=== PATIENT | male | born 1935 | race Caucasian/White ===

== ENCOUNTER → 2018-04-06 | Outpatient (CLI) | payer OTHER ==
[~2018-04-06] MED LIST: APAP650 PO; ASPIR 8181 MG PO; ATORVASTATIN CA40 MG PO; COUMADIN 5 MG TA5 M1 PO; FINASTERIDE5 MG PO; KLOR-CON 1010 MEQ PO; LASIX 40 MG TAB40 M2 PO; LEVAQUIN 500 M500 M2 PO; LISINOPRIL10 MG PO; LOPRESSOR50 MG PO; NITROGLYCERIN0.4 MG SUBLING; VITAMIN D1000 UNI1 PO; VITAMIN E400 UNIT PO
--- NOTE | 2018-04-06 10:04 | 2DMMODE ---
[place] [address] 2 D/M-MODE ECHOCARDIOGRAM Name: BRANT MILLER Room: [facility]#: [id number] Admission: 04/06/18 Attend Phys: Yin Randle, Discharge: Date of : 31 Date of Service: 04/06/18 1003 Report #: [id number] THIS REPORT FOR: //name// APPROVED REPORT Study performed: 04/06/2018 09:23:06 EXAM: Comprehensive 2D, Doppler, and color-flow Echocardiogram Patient Location: Out-Patient Status: routine BSA: 1.83 HR: 96 bpm BP: 110/68 mmHg Other Information Study Quality: Good Indications Cardiomyopathy 2D Dimensions LVEF(%): 19.01 (>50%) IVSd: 11.68 (7-11mm) LVOT Diam: 20.85 (18-24mm) LVDd: 61.95 mm PWd: 9.99 (7-11mm) Ascending Ao: 37.19 (22-36mm) LVDs: 56.50 (25-40mm) Aortic Root: 25.63 mm Martinez's LVEF: 19.01 % Volumes Left Atrial Volume (Systole) LA ESV Index: 39.10 mL/m2 Aortic Valve AoV Peak Anurag.: 0.82 m/s AO Peak Gr.: 2.68 mmHg LVOT Max P.07 mmHg AO Mean Gr.: 1.66 mmHg LVOT Mean P.53 mmHg LVOT Max V: 0.52 m/s AO V2 VTI: 12.65 cm LVOT Mean V: 0.34 m/s QUITA (VTI): 2.03 cm2 LVOT V1 VTI: 7.51 cm Mitral Valve MV Decel. Time: 211.34 ms MV PHT: 61.29 [place] [address] 2 D/M-MODE ECHOCARDIOGRAM Name: BRANT MILLER Room: [facility]#: [id number] Admission: 04/06/18 Attend Phys: Yin Randle, Discharge: Date of : 31 Date of Service: 04/06/18 1003 Report #: [id number] MVA (PHT): 3.59 cm2 TDI Medial E' Anurag.: 0.08 m/s Lateral E' Anurag.: 0.11 m/s Pulmonary Valve PV Peak Anurag.: 0.67 m/s PV Peak Gr.: 1.77 mmHg Tricuspid Valve RAP Estimate: 5.00 mmHg TR Peak Gr.: 16.93 mmHg RVSP: 21.93 mmHg PA Pressure: 21.93 mmHg Left Ventricle Left ventricle is mildly dilated. There is diffuse hypokinesis of left ventricular wall motion There is normal left ventricular wall thickness. Left ventricular systolic function is severely decreased. LVEF is 25%. This study is not technically sufficient to allow evaluation of the LV diastolic function due to atrial fibrillation. Right Ventricle The right ventricle is normal size. The right ventricular systolic function is normal. Atria Left atrium is moderately dilated. The right atrium size is normal. Aortic Valve Aortic valve leaflets are mildly thickened. Trace aortic regurgitation. There is no aortic valvular stenosis. Mitral Valve The mitral valve is normal in structure. Mild mitral regurgitation. No evidence of mitral valve stenosis. Tricuspid Valve The tricuspid valve is normal in structure. Mild tricuspid regurgitation. Pulmonic Valve The pulmonary valve is normal in structure. Mild [place] [address] 2 D/M-MODE ECHOCARDIOGRAM Name: BRANT MILLER Room: [facility]#: [id number] Admission: 04/06/18 Attend Phys: Yin Randle, Discharge: Date of : 31 Date of Service: 04/06/18 1003 Report #: [id number] Great Vessels The aortic root is normal in size. IVC is dilated and collapses >50% with inspiration. Pericardium There is no pericardial effusion. <Conclusion> Left ventricle is mildly dilated. There is normal left ventricular wall thickness. Left ventricular systolic function is severely decreased. LVEF is 25%. This study is not technically sufficient to allow evaluation of the LV diastolic function due to atrial fibrillation. The right ventricle is normal size. Left atrium is moderately dilated. Aortic valve leaflets are mildly thickened. Trace aortic regurgitation. There is no aortic valvular stenosis. The mitral valve is normal in structure. Mild mitral regurgitation. The tricuspid valve is normal in structure. Mild tricuspid regurgitation. IVC is dilated and collapses >50% with inspiration. There is no pericardial effusion. There is diffuse hypokinesis of left ventricular wall motion <ELECTRONICALLY SIGNED> By: Cesar Gupta MD, FACC 04/06/18 1003 1003 1003 Cesar Gupta MD, FACC /INF
== END ==
LOC: M.CRD 09:00
DX: I08.1 Rheumatic disorders of both mitral and tricuspid valves (principal); I50.22 Chronic systolic (congestive) heart failure; I25.5 Ischemic cardiomyopathy

== ENCOUNTER → 2018-11-09 | Outpatient (CLI) | payer OTHER ==
[2018-11-09 16:47] LABS: HEMATOCRIT 40.5 % (42.0-52.0); HEMOGLOBIN 13.8 gm/dL (14.0-18.0); MCH 31.6 pg (26.0-34.0); MCHC 34.2 g/dL (28.0-37.0); MCV 92.4 fL (80.0-100.0); MPV 7.9 fl. (7.2-11.1); RBC 4.38 mil/uL (4.50-6.00); RDW-CV 14.1 % (10.5-14.5); WBC 9.6 thou/uL (4.0-11.0)
[2018-11-09 16:52] LABS: INR 2.4; PROTIME 24.3 Seconds (9.20-11.50)
[2018-11-09 17:05] LABS: CHOLESTEROL 160 mg/dL (<200); HDL CHOLESTEROL 50 mg/dL (>40); LDL CHOLESTEROL 91 mg/dL (<100); SERUM ASSESSMENT Clear; TC:HDL 3.2 Ratio (Not establshd); TRIGLYCERIDE 98 mg/dL (<150); VLDL 20 mg/dL (<40)
[2018-11-09 21:49] LABS: ALBUMIN 3.8 g/dL (3.4-5.0); CALCIUM 8.8 mg/dL (8.5-10.1); CREATININE 1.6 mg/dL (0.6-1.3); TOTAL BILIRUBIN 0.7 mg/dL (<0.1-1.0); TOTAL PROTEIN 6.4 g/dL (6.4-8.2)
== END ==
LOC: M.LAB 16:23
PROVIDERS: Registered Nurse
DX: I25.5 Ischemic cardiomyopathy (principal); I48.91 Unspecified atrial fibrillation; E78.2 Mixed hyperlipidemia

== ENCOUNTER → 2019-05-16 | Outpatient (CLI) | payer OTHER ==
--- NOTE | 2019-05-16 15:15 | 2DMMODE ---
[place] [address] 2 D/M-MODE ECHOCARDIOGRAM Name: BRANT MILLER Room: [facility]#: [id number] Admission: 05/16/19 Attend Phys: Carlyle Anne Discharge: Date of : 31 Date of Service: 05/16/19 1514 Report #: [id number] THIS REPORT FOR: //name// APPROVED REPORT Study performed: 05/16/2019 13:04:45 EXAM: Comprehensive 2D, Doppler, and color-flow Echocardiogram Patient Location: Out-Patient BSA: 1.79 HR: 90 bpm BP: 110/68 mmHg Other Information Study Quality: Good Indications Cardiomyopathy 2D Dimensions IVSd: 11.98 (7-11mm) LVOT Diam: 20.82 (18-24mm) LVDd: 61.17 mm PWd: 11.31 (7-11mm) Ascending Ao: 35.31 (22-36mm) LVDs: 54.17 (25-40mm) Aortic Root: 31.92 mm Volumes Left Atrial Volume (Systole) LA ESV Index: 35.10 mL/m2 Aortic Valve AoV Peak Anurag.: 0.99 m/s AO Peak Gr.: 3.92 mmHg LVOT Max P.20 mmHg AO Mean Gr.: 2.35 mmHg LVOT Mean P.66 mmHg LVOT Max V: 0.55 m/s AO V2 VTI: 17.80 cm LVOT Mean V: 0.38 m/s QUITA (VTI): 1.86 cm2 LVOT V1 VTI: 9.71 cm Mitral Valve MV Decel. Time: 129.97 ms MV PHT: 37.69 ms MVA (PHT): 5.84 [place] [address] 2 D/M-MODE ECHOCARDIOGRAM Name: BRANT MILLER [id number] Admission: 05/16/19 Attend Phys: Carlyle Anne Discharge: Date of : 31 Date of Service: 05/16/19 1514 Report #: [id number] Medial E' Anurag.: 0.08 m/s Lateral E' Anurag.: 0.12 m/s Pulmonary Valve PV Peak Anurag.: 0.57 m/s PV Peak Gr.: 1.32 mmHg Tricuspid Valve RAP Estimate: 5.00 mmHg TR Peak Gr.: 15.62 mmHg RVSP: 20.62 mmHg PA Pressure: 20.62 mmHg Left Ventricle Left ventricle is moderately dilated. There is severe diffuse hypokinesis of left ventricular wall motion. There is normal left ventricular wall thickness. Left ventricular systolic function is severely decreased. LVEF is 20-25%. This study is not technically sufficient to allow evaluation of the LV diastolic function due to atrial fibrillation. Right Ventricle The right ventricle is normal size. The right ventricular systolic function is normal. Atria Left atrium is moderately dilated. Right atrium is moderately dilated. Aortic Valve Aortic valve is mildly calcified. Mild aortic regurgitation. There is no aortic valvular stenosis. Mitral Valve The mitral valve is normal in structure. Mild mitral regurgitation. No evidence of mitral valve stenosis. Tricuspid Valve The tricuspid valve is normal in structure. Mild tricuspid regurgitation. Pulmonic Valve The pulmonary valve is normal in structure. Mild pulmonic regurgitation. Great Vessels The aortic root is normal in size. IVC is normal in size and collapses >50% [place] [address] 2 D/M-MODE ECHOCARDIOGRAM Name: BRANT MILLER Room: [facility]#: [id number] Admission: 05/16/19 Attend Phys: Carlyle Anne Discharge: Date of : 31 Date of Service: 05/16/19 1514 Report #: [id number] Pericardium There is no pericardial effusion. <Conclusion> Left ventricle is moderately dilated. There is normal left ventricular wall thickness. Left ventricular systolic function is severely decreased. LVEF is 20-25%. This study is not technically sufficient to allow evaluation of the LV diastolic function due to atrial fibrillation. The left atrium is moderately dilated The right ventricle is normal size. Right atrium is moderately dilated. Aortic valve is mildly calcified. Mild aortic regurgitation. There is no aortic valvular stenosis. The mitral valve is normal in structure. Mild mitral regurgitation. IVC is normal in size and collapses >50% with inspiration. There is no pericardial effusion. There is severe diffuse hypokinesis of left ventricular wall motion. <ELECTRONICALLY SIGNED> By: Cesar Gupta MD, FACC 05/16/19 1514 1514 1514 Cesar Gupta MD, FACC /INF
== END ==
LOC: M.CRD 12:58
DX: I08.8 Other rheumatic multiple valve diseases (principal); I48.91 Unspecified atrial fibrillation

== ENCOUNTER 2019-06-30 16:44 | Emergency (ER) | payer OTHER ==
[~2019-06-30] VITALS: Ht 170.2 cm; Wt 68.5 kg
[2019-06-30 17:53] LABS: HEMATOCRIT 37.5 % (42.0-52.0); HEMOGLOBIN 13.1 gm/dL (14.0-18.0); MCH 31.7 pg (26.0-34.0); MCHC 34.9 g/dL (28.0-37.0); MCV 90.9 fL (80.0-100.0); MPV 7.9 fl. (7.2-11.1); RBC 4.13 mil/uL (4.50-6.00); WBC 9.2 thou/uL (4.0-11.0)
[2019-06-30 18:14] LABS: INR 3.2; PROTIME 31.1 Seconds (9.20-11.50)
[2019-06-30 18:38] VITALS: BP 124/82
[2019-07-01] MEDS ORDERED: PHYTONADIONE5 MG PO (22:56)
== END 2019-06-30 18:39 | disposition home or self-care (01) ==
LOC: M.ERS 16:44
PROVIDERS: Emergency Medicine Emergency Medical Services
DX: K91.840 Postprocedural hemorrhage of a digestive system organ or structure following a digestive system procedure (principal); I11.0 Hypertensive heart disease with heart failure; I50.9 Heart failure, unspecified

== ENCOUNTER 2019-07-01 21:55 | Emergency (ER) | payer OTHER ==
[~2019-07-01] VITALS: Ht 172.7 cm; Wt 68.5 kg
[2019-07-01] MEDS ORDERED: PHYTONADIONE5 MG PO (22:56)
[2019-07-01 23:02] VITALS: BP 110/70
== END 2019-07-01 23:02 | disposition home or self-care (01) ==
LOC: M.ERS 21:55
DX: K91.840 Postprocedural hemorrhage of a digestive system organ or structure following a digestive system procedure (principal); I11.0 Hypertensive heart disease with heart failure; I50.9 Heart failure, unspecified

== ENCOUNTER 2019-07-02 03:00 | Emergency (ER) | payer OTHER ==
[~2019-07-02] VITALS: Ht 172.7 cm; Wt 68.5 kg
[~2019-07-02 03:00] MED LIST changes: +PHYTONADIONE5 MG PO
[2019-07-02 03:54] VITALS: BP 122/68
== END 2019-07-02 04:12 | disposition home or self-care (01) ==
LOC: M.ERS 03:00
DX: K91.840 Postprocedural hemorrhage of a digestive system organ or structure following a digestive system procedure (principal); I11.0 Hypertensive heart disease with heart failure; I50.9 Heart failure, unspecified

== ENCOUNTER → 2019-09-07 | Outpatient (CLI) | payer OTHER ==
--- NOTE | 2019-09-07 14:30 | 2DMMODE ---
[place] [address] 2 D/M-MODE ECHOCARDIOGRAM Name: BRANT MILLER Room: [facility]#: [id number] Admission: 09/07/19 Attend Phys: Carlyle Anne Discharge: Date of : 31 Date of Service: 09/07/19 1429 Report #: [id number] THIS REPORT FOR: //name// APPROVED REPORT Study performed: 09/07/2019 12:53:14 EXAM: Comprehensive 2D, Doppler, and color-flow Echocardiogram Patient Location: Out-Patient BSA: 1.80 HR: 92 bpm BP: 110/68 mmHg Other Information Study Quality: Excellent Indications Cardiomyopathy 2D Dimensions IVSd: 12.37 (7-11mm) LVOT Diam: 20.51 (18-24mm) LVDd: 62.56 mm PWd: 11.42 (7-11mm) Ascending Ao: 31.56 (22-36mm) LVDs: 53.52 (25-40mm) Aortic Root: 35.96 mm Volumes Left Atrial Volume (Systole) LA ESV Index: 43.00 mL/m2 Aortic Valve AoV Peak Anurag.: 0.87 m/s AO Peak Gr.: 3.05 mmHg LVOT Max P.61 mmHg AO Mean Gr.: 2.07 mmHg LVOT Mean P.88 mmHg LVOT Max V: 0.63 m/s AO V2 VTI: 13.01 cm LVOT Mean V: 0.44 m/s QUITA (VTI): 2.48 cm2 LVOT V1 VTI: 9.77 cm Mitral Valve MV Decel. Time: 237.64 ms MV PHT: 68.92 ms MVA (PHT): 3.19 [place] [address] 2 D/M-MODE ECHOCARDIOGRAM Name: BRANT MILLER [id number] Admission: 09/07/19 Attend Phys: Carlyle Anne Discharge: Date of : 31 Date of Service: 09/07/19 1429 Report #: [id number] Medial E' Anurag.: 0.09 m/s Lateral E' Anurag.: 0.10 m/s Pulmonary Valve PV Peak Anurag.: 0.58 m/s PV Peak Gr.: 1.35 mmHg Tricuspid Valve RAP Estimate: 5.00 mmHg TR Peak Gr.: 20.01 mmHg RVSP: 25.01 mmHg PA Pressure: 25.01 mmHg Left Ventricle Left ventricle is moderately dilated. There is global hypokinesis of the left ventricle. Mild concentric left ventricular hypertrophy. Left ventricular systolic function is severely decreased. LVEF is 15-20%. This study is not technically sufficient to allow evaluation of the LV diastolic function due to atrial fibrillation. Right Ventricle The right ventricle is normal size. The right ventricular systolic function is normal. Atria Left atrium is moderately dilated. The right atrium size is mildly dilated Aortic Valve Aortic valve is mildly calcified. Mild aortic regurgitation. There is no aortic valvular stenosis. Mitral Valve The mitral valve is normal in structure. Mild mitral regurgitation. No evidence of mitral valve stenosis. Tricuspid Valve The tricuspid valve is normal in structure. Mild tricuspid regurgitation. estimated pa pressure 30 mm Hg Pulmonic Valve The pulmonary valve is normal in structure. Mild pulmonic regurgitation. Great Vessels The aortic root is normal in size. IVC is normal in size and collapses >50% [place] [address] 2 D/M-MODE ECHOCARDIOGRAM Name: BRANT MILLER Room: [facility]#: [id number] Admission: 09/07/19 Attend Phys: Carlyle Anne Discharge: Date of : 31 Date of Service: 09/07/19 1429 Report #: [id number] Pericardium There is no pericardial effusion. <Conclusion> Left ventricle is moderately dilated. LVEF is 15-20%. Left atrium is moderately dilated. Aortic valve is mildly calcified. Mild aortic regurgitation. Mild mitral regurgitation. <ELECTRONICALLY SIGNED> By: Celio Stapleton MD, HARLEEN 09/07/19 1429 1429 1429 Celio Stapleton MD, [facility]ITALStephanie /INF
== END ==
LOC: M.CRD 12:53
DX: I08.8 Other rheumatic multiple valve diseases (principal); I25.5 Ischemic cardiomyopathy; I50.42 Chronic combined systolic (congestive) and diastolic (congestive) heart failure

== ENCOUNTER → 2021-07-19 | Outpatient (CLI) | payer OTHER ==
[2021-07-19 11:13] LABS: URINE BILIRUBIN NEGATIVE (Negative); URINE BLOOD 2+ (Negative); URINE CLARITY CLEAR; URINE COLOR YELLOW; URINE GLUCOSE-RANDOM NEGATIVE (Negative); URINE KETONES NEGATIVE (Negative); URINE LEUKOCYTES-REFLEX NEGATIVE (Negative); URINE NITRITE-REFLEX NEGATIVE (Negative); URINE PROTEIN NEGATIVE (Negative)
[2021-07-19 11:27] LABS: SQUAMOUS NONE SEEN /LPF (0-3)
[2021-07-19 11:28] LABS: BACTERIA-REFLEX None Seen /HPF (None Seen); CASTS None Seen /LPF (None Seen); CRYSTALS None Seen /LPF (None Seen); URINE RBC 3-10 Few /HPF (0-2); URINE WBC-REFLEX None Seen /HPF (0-5)
== END ==
LOC: M.LAB 10:52
PROVIDERS: ATTEND Family Medicine
DX: R39.89 Other symptoms and signs involving the genitourinary system (principal)